=== PATIENT | female | born 1965 | race Hispanic/Latino ===

== ENCOUNTER 2025-04-02 10:38 | Day surgery (SDC) | payer OTHER ==
[2025-04-02] VITALS (10 sets, daily range): BP systolic 101–125; BP diastolic 56–70; PULSE 68–76; RESP 15–18; TEMP 97.3–98.1
[~2025-04-02] VITALS: Ht 157.5 cm; Wt 77.1 kg
[~2025-04-02 10:38] MED LIST: 0.9%NACL 1000ML 1,000 ML IV ONE
[2025-04-02] MEDS ORDERED: LIDOCAINE PF 100MG/5ML (2%) SYRINGE 5ML ONE (13:22)
--- NOTE | 2025-04-02 15:00 | NUR ---
BOTH PT AND DAUGHTER GIVEN VERBAL AND WRITTEN DISCHARGE INSTRUCTIONS. IV REMOVED SITE ASYMPTOMATIC. PT TAKEN OUT VIA WHEELCHAIR DAUGHTER DRIVING
== END 2025-04-02 15:10 | disposition home or self-care (01) ==
LOC: ENDO 10:38 → DAH 10:38 → ENDO 15:10
PROVIDERS: ATTEND Internal Medicine Gastroenterology
DX: K59.00 Constipation, unspecified (principal); K64.0 First degree hemorrhoids; K57.30 Diverticulosis of large intestine without perforation or abscess without bleeding; Z80.0 Family history of malignant neoplasm of digestive organs; Z79.899 Other long term (current) drug therapy; Z83.3 Family history of diabetes mellitus; Z82.49 Family history of ischemic heart disease and other diseases of the circulatory system; Z98.890 Other specified postprocedural states
CPT/HCPCS: 45378; J7030; J2003; J2704; A4620; A4215; J3490